=== PATIENT | male | born 1950 ===

== ENCOUNTER 2025-08-14 07:49 | Outpatient (CLI) | payer OTHER ==
[2025-08-14 09:36] LABS: BASO % 0.6 % (0.1-1.2); EOS # 0.14 (0.04-0.54); EOS % 2.6 % (0.7-7.0); LYMPH # 1.30 (1.18-3.74); LYMPH % 24.2 % (19.3-53.1); MEAN PLATELET VOLUME 9.40 fl (9.4-12.4); MONO # 0.54 (0.24-0.82); MONO % 10.1 % (4.7-12.5); NEUT # 3.35 (1.56-6.13); NEUT % 62.3 % (34.0-71.1); RED CELL DISTRIBUTION WIDTH 12.4 % (11.6-14.4)
[2025-08-14 11:05] LABS: % SATURACION 25.9 % (20-50); ALT/SGPT 24.0 U/L (12-78); AST/SGOT 18.0 U/L (15-37); BILIRUBIN TOTAL 0.96 mg/dL (0.3-1.2); BUN CREA RATIO 23.0 (7.0-25.0); CREATININE SERUM 0.99 mg/dL (0.70-1.30); FE 86.0 ug/dl (65-175); GFR 73.69; GLOBULINA 3.6 G/DL (2.4-3.5); GLUCOSE FASTING 103.0 mg/dL (65-100); LDH 201.0 U/L (87-241); OSMOLALITY SERUM 285.0 MOSM/KG (275-295); T4 FREE 0.88 NG/ML (0.76-1.46)
[2025-08-14 11:06] LABS: TSH 6.53 uIU/mL (0.358-3.74)
[2025-08-14 12:57] LABS: FOLIC ACID 14.09 ng/ml (4.78-20); VITAMIN D3 25 HYDROXY 33.31 ng/ml (30-120)
[2025-08-15 10:07] LABS: ANTI THYROID PEROXIDASE 16 IU/mL (0-34); CA 125 5.3 U/mL (Not Estab.); CA 19-9 11 U/mL (0-35)
== END 2025-08-14 07:50 | disposition home or self-care (01) ==
LOC: LAB 07:49
PROVIDERS: ATTEND Internal Medicine Hematology & Oncology
DX: D63.8 Anemia in other chronic diseases classified elsewhere (principal); D51.3 Other dietary vitamin B12 deficiency anemia; I10 Essential (primary) hypertension; E78.2 Mixed hyperlipidemia; N40.1 Benign prostatic hyperplasia with lower urinary tract symptoms; I65.23 Occlusion and stenosis of bilateral carotid arteries; D50.8 Other iron deficiency anemias; R74.02 Elevation of levels of lactic acid dehydrogenase [LDH]; K76.89 Other specified diseases of liver; E55.9 Vitamin D deficiency, unspecified; D51.1 Vitamin B12 deficiency anemia due to selective vitamin B12 malabsorption with proteinuria; E03.8 Other specified hypothyroidism; E06.3 Autoimmune thyroiditis; R97.0 Elevated carcinoembryonic antigen [CEA]

== ENCOUNTER 2025-08-14 09:17 | Outpatient (CLI) | payer OTHER | END 2025-08-14 09:21 | disposition home or self-care (01) | LOC: SONOGRAMA 09:17 | PROVIDERS: ATTEND Internal Medicine Hematology & Oncology | DX: D63.8 Anemia in other chronic diseases classified elsewhere (principal); D51.3 Other dietary vitamin B12 deficiency anemia; I10 Essential (primary) hypertension; N40.1 Benign prostatic hyperplasia with lower urinary tract symptoms; I65.23 Occlusion and stenosis of bilateral carotid arteries ==